=== PATIENT | male | born 1950 | race Caucasian/White ===

== ENCOUNTER 2018-09-17 15:55 | Emergency (ER) | payer OTHER, MEDICARE ==
[~2018-09-17] VITALS: Ht 177.8 cm; Wt 72.6 kg
[~2018-09-17 15:55] MED LIST: LISINOPRIL10 MG PO; MONTELUKAST SOD10 MG PO
--- OUTSIDE RECORDS SUMMARY | 2018-09-17 15:58 | XMS ---
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 Veronica has no Care Guidelines for this patient. Samira VISIT COUNT (12 MO.) 1 [facility] [place] TOTAL 1 NOTE: Visits indicate total known visits. ED/UCC VISIT TRACKING (12 MO.) 09/17/2018 15:55 [facility] [place] TYPE: Emergency COMPLAINT: - NOSE INJURY INPATIENT VISIT TRACKING (12 MO.) No inpatient visits to display in this time frame [email or web address]
== END 2018-09-17 17:28 | disposition home or self-care (01) ==
LOC: ED 15:55
DX: S01.21XA Laceration without foreign body of nose, initial encounter (principal); R04.0 Epistaxis; I10 Essential (primary) hypertension; Z90.89 Acquired absence of other organs; Z79.899 Other long term (current) drug therapy; W01.198A Fall on same level from slipping, tripping and stumbling with subsequent striking against other object, initial encounter
CPT/HCPCS: 99283

== ENCOUNTER 2020-12-30 13:28 | Inpatient (IN) | payer MEDICARE, OTHER ==
[~2020-12-30] VITALS: Ht 177.8 cm; Wt 64.0 kg
--- OUTSIDE RECORDS SUMMARY | 2020-12-30 13:30 | XMS ---
PreManage Notification: MICHELL ROMERO Security Teacher Specialist Events No recent Security Events currently on file CRITERIA MET - [facility] CARE PROVIDERS [facility] 09/18/2018-Current PHONE: [phone] Veronica has no Care Guidelines for this patient. E[place] VISIT COUNT (12 MO.) 1 EN[facility]QUE [place] TOTAL 1 NOTE: Visits indicate total known visits. ED/UCC VISIT TRACKING (12 MO.) 12/30/2020 13:29 [facility] [place] TYPE: Emergency COMPLAINT: - FLU SYMPTOMS INPATIENT VISIT TRACKING (12 MO.) No inpatient visits to display in this time frame [email or web address]
--- NOTE | 2020-12-30 16:56 | NUR ---
New admit to the floor. Patient arrived alert and oriented. Patient is on 2L oxygen per nc, respirations non labored, sp02 94% at this time. Vital signs are stable at this time. Patient reports a non productive cough. No reported pain at this time. Patient oriented to room and call light. No needs at this time.
[2020-12-30] MEDS ORDERED: ZOLPIDEM TARTRA10 MG PO (17:30)
[2020-12-30] MEDS ORDERED: FLUTICASONE PRO16 GM NAS (17:31)
--- NOTE | 2020-12-30 19:30 | NUR ---
PATIENT RESTING QUIETLY IN BED, RESPIRATIONS ARE REGULAR AND EVEN, CALL LIGHT IN REACH, PROCEDURES ANALYST IN THE ROOM. SHIFT REPORT RECEIVED FROM KALPANA GARZA.
--- NOTE | 2020-12-30 20:21 | NUR ---
PATIENT DENIES BEING SHORT OF BREATH AT THIS TIME AND DENIES PAIN.PATIENT ASSESSMENT COMPLETE AND VS STABLE ON 2L/NC. PATIENT SAYS HE HAS NOT SLEPT IN 6 DAYS AND NORMALLY TAKES AMBIEN FOR SLEEP, BUTHIS HAD NOT BEEN LETTING HIM HAVE IT AT HOME. HAS ORDERED THE AMBIEN AND THIS WILL BE GIVEN AT .
--- NOTE | 2020-12-30 21:22 | NUR ---
PATIENT GIVEN 5MG PO AMBIEN, A TESSALON WANDER, AND A MELATONIN TO HELP HIM SLEEP. PATIENT GIVEN NEW WATER. PATIENT'S O2 SATS ARE 96% ON 2L/NC. CALL LIGHT IS IN REACH. PATIENT HAS NO OTHER NEEDS AT THIS TIME.
--- NOTE | 2020-12-30 23:52 | NUR ---
PATIENT HAS MOVED MORE TO HIS RIGHT SIDE, RESPIRATIONS ARE REGULAR AND EVEN, PATIENT CONFIRMS HE HAS BEEN ABLE TO GET A LITTLE SLEEP, AND PATIENT HAS NO CURRENT CARE NEEDS AT THIS TIME. PATIENT'S O2 SATS ARE 97% ON 2L/NC WITH HR=61. ON THE UNIT AND INFORMED THAT PATIENT HAS NOT VOIDED SINCE ARRIVAL TO MED/SURG AND NO NEW ORDERS GIVEN. CALL LIGHT IS IN REACH.
--- NOTE | 2020-12-31 02:21 | NUR ---
PATIENT BACK IN BED AFTER 1PA TO THE BATHROOM AND BACK TO BED. PATIENT'S GOWN AND LINENS CHANGED DUE TO SWEATING. PATIENT GIVEN NEW WATER AND VS DONE BY FRANCISCA GRAHAM. PATIENT TOLERATED WALK TO THE BATHROOM WELL AND IS NOW POSITIONED HIGH ON HIS RIGHT SIDE ON 2L/NC WITH O2 SAT OF 98% AND HR=60. CALL LIGHT IS IN REACH.
--- NOTE | 2020-12-31 03:45 | NUR ---
PATIENT CONTINUES TO REST ON HIS RIGHT SIDE, RESPIRATIONS REGULAR AND EVEN, EYES CLOSED, AND CALL LIGHT ISIN REACH.
--- NOTE | 2020-12-31 05:50 | NUR ---
PATIENT SAYS HE SLEPT WELL. PATIENT REMAINS ON 2L/NC WITH O2 SAT AT 94%. PATIENT HAS TURNED BACK TO HIS BACK FOR THE MOMENT. PATIENT'S ICE WATER REFILLED. PATIENT HAS TO DRINK WITH AN OPEN TOP GLASS HE DOES NOT HAVE ENOUGH ENERGY TO SUCK WITH A STRAW. PATIENT'S RESPIRATIONS ARE REGULAR AND EVEN AND CALL LIGHT IS IN REACH. PATIENT DENIES THE NEED FOR COUGH MEDICATION OR TYLENOL.
--- NOTE | 2020-12-31 09:10 | NUR ---
Patient sitting up in bed eating breakfast. Patient remains on 2L oxygen per nc, respirations are even and non labored. Patient denies shorness of breath at this time. CPOX intact, sp02 94%. Patient tolerating breakfast well. Personal supplies and call light within reach.
[2020-12-31] MEDS ORDERED: RILUZOLE50 MG PO (10:00)
--- NOTE | 2020-12-31 10:30 | NUR ---
patient requested to lay down for a nap. this FLAVORING MACHINE OPERATOR put the head of the bed. closed the blinds. phone in reach. call light in reach. Pt didnt want to order lunch. has no urine output for the morning. RN notified.
--- NOTE | 2020-12-31 10:54 | NUR ---
called in hopes to speak with patient's provider regarding oxygen use for patient. expressed concern that patient's c02 will become high. This RN notified Dr. De La O that called an was concerned regarding his oxygen use. Explained to that the staff here and myself will continue to monitor patient for alerted mental status as this may indicate rising c02 levels. receptive and states she is worried about her . Patient is alert and oriented x4, respirations are even and non labored, sp02 is 94%. Patient speaking appropriately to this RN.
--- NOTE | 2020-12-31 11:00 | NUR ---
Dr. De La O notified that patient has not yet voided for me this shift. No new orders.
--- NOTE | 2020-12-31 11:04 | NUR ---
patient sittig up in the bed for breakfast. warm washcoth offered and taken. board updated. fresh ice water given. call light within reach. no further needs at this time.
--- NOTE | 2020-12-31 11:40 | NUR ---
Patient titrated to room at this time for trial. Patient's sp02 91-94%, respirations non labored. CPOX intact, sp02 continuously monitored. Patient denies shortness of breath on room air. Will continue to monitor patient.
--- NOTE | 2020-12-31 13:09 | NUR ---
Patient placed back on 2L oxygen per nc due to saturation level of 90%. Provider updated.
--- NOTE | 2020-12-31 17:20 | NUR ---
Patient sitting up in bed, hob elevated. Patient drinking his ensure for dinner. Patient denies shortness of breath and pain at this time. Patient continues on 2L oxygen per nc, respirations even and non labored. Patient reports he feels as though he is having difficulty getting phlegm up out of his chest. Encouraged patient to continue to drink plenty of fluids. No current needs. Personal supplies and call light within reach.
[2020-12-31] MEDS ORDERED: VIRTUSSIN AC L118 ML PO (17:24)
--- NOTE | 2020-12-31 19:20 | NUR ---
PATIENT SHIFT REPORT RECEIVED FROM KALPANA GARZA. PATIENT WANTED SOMEONE TO GET HI THE PHONE, SO THIS RN GOT THAT FOR HIM AND HE HAD NO OTHER CARE NEEDS AT THIS TIME. CALL LIGHT IS IN REACH.
--- NOTE | 2020-12-31 21:19 | NUR ---
PATIENT RESPOSITIONED IN BED. PATIENT REMAINS ON 2L/NC WITH SATS=96%. PATIENT TOOK ALL PM MEDS AND PRNS WITHOUT DIFFICULTY AND IV FLUSHED AND WNL. PATIENT'S ICE WATER WAS REFILLED AND VS ARE WNL. PATIENT DOES NOT NEED TO VOID AT THIS TIME, BUT WILL CALL WHENHE NEEDS TO GO. CALL LIGHT IS IN REACH AND BED IS IN THE LOWEST POSITION.
--- NOTE | 2020-12-31 22:45 | NUR ---
PATIENT HAS REPOSITIONED HIMSELF TO THE LEFT SIDE, RESPIRATIONS AR SHALLOW AND EVEN, EYES ARE CLOSED, O2 SATS=96% ON 2L/NC WITH HR=60. PATIENT HAS NO CURRENT CARE NEEDS AND CALL LIGHT IS IN REACH.
--- NOTE | 2021-01-01 00:45 | NUR ---
PATIENT UP TO THE RESTROOM 1PSBA AND BACK TO BED. PATIENT STILL A LITTLE UNSTEADY, BUT WAS INDEPENDENT FOR THE MOST PART. FRESH ATTENDS IN PLACE AND PATIENT REPOSITIONED IN BED. NEW ICE WATER GIVEN AND COUGH SYRUP. O2 SATS 94% ON 2L/NC WITH A HEART RATE=66. PATIENT HAD NO OTHER CARE NEEDS AT THIS TIME. CALL LIGHT IS IN REACH.
--- NOTE | 2021-01-01 02:15 | NUR ---
PATIENT RESTING QUIETLY NOW IN SEMI-FOWLERS POSITION, RESPIRATIONS SHALLOW AND EVEN, EYES CLOSED, O2 SATS 95% ON 2L/NC WITH A HR=64. CALL LIGHT IS IN REACH.
--- NOTE | 2021-01-01 04:35 | NUR ---
PATIENT SITTING IN BED IN HIGH FOWLERS POSITION. RESPIRATIONS ARE SHALLOW AND EVEN AND CALL LIGHT IS IN REACH. PATIENT'S O2 SATS ARE 97% ON 2L/NC WITH A HR=57 AND PATIENT REQUESTED A NEW GLASS OF ICE WATER WHICH HAS BEEN GIVEN.
--- NOTE | 2021-01-01 05:00 | NUR ---
PATIENT INFORMED TIS RN TAT E SLEPT WELL. PATIENT GREAT ORAL FLUID INTAKE. VS ARE STABLE AND O2 SAT REMAIN IN TE 90'S ON 2L/NC. PATIENT DENIES PAIN OR TE NEED FOR ANY OTER CARE AT TIS TIME. PATIENT REPOSITIONED IN BED AND LIGTS TURNED DOWN PATIENT WANTS TO SLEEP A LITTLE LONGER. CALL DE LA GARZA BESIDE PATIENT.
--- NOTE | 2021-01-01 06:42 | NUR ---
PATIENT RESTING IN HIGH FOWLERS POSITION. CPOX BATTERY CHANGED. O2 SAT 95% ON 2L/NC. CALL LIGHT IS IN REACH.
--- NOTE | 2021-01-01 08:52 | NUR ---
PATIENT IN BED RESTING. VITALS DONE. WILL COME BACK FOR I&O'S. CALL BUTTON CLOSE BY. NO MORE NEEDS.
[2021-01-01] MEDS ORDERED: DEXAMETHASONE6 MG PO (10:22)
--- NOTE | 2021-01-01 11:01 | NUR ---
Patient awake, alert and oriented x4. Patient reports he slept well last night. CPOX intact, sp02 95% on 2L per nc. Patient respirations are even and non labored, pt denies sob. Patient updated with plan of care. No needs.
--- NOTE | 2021-01-01 12:22 | NUR ---
DUE TO PRECAUTIONS I AM UNABLE TO VISIT PT. HE HAS IMPROVED, MAY DC TODAY
--- NOTE | 2021-01-01 13:30 | NUR ---
PATIENT IN BED WAITING TO BE DISCHARGED. VITALS AND I&O'S DONE. CALL LIGHT IN REACH. NO FURTHER NEEDS AT THIS TIME.
--- NOTE | 2021-01-01 13:59 | NUR ---
Discharge information provided to patient. Updated patient's . reports she will come get her after jorden arrives to her house.
== END 2021-01-01 14:50 | disposition home or self-care (01) | DRG 177 ==
LOC: ED 13:28 → MS 15:59
PROVIDERS: ADMIT Internal Medicine; ATTEND Internal Medicine
PROC: 8E0ZXY6 Isolation (ICD-10-PCS; principal; 2020-12-30)
PROC: XW033E5 Introduction of Remdesivir Anti-infective into Peripheral Vein, Percutaneous Approach, New Technology Group 5 (ICD-10-PCS; 2020-12-31)
PROC: 3E0DX3Z Introduction of Anti-inflammatory into Mouth and Pharynx, External Approach (ICD-10-PCS; 2020-12-31)
DX: U07.1 COVID-19 (principal); J96.01 Acute respiratory failure with hypoxia; J12.82 Pneumonia due to coronavirus disease 2019; G12.21 Amyotrophic lateral sclerosis; F51.04 Psychophysiologic insomnia; I10 Essential (primary) hypertension; Z79.899 Other long term (current) drug therapy; Z98.890 Other specified postprocedural states
CPT/HCPCS: 71045; 80053; 83735; 84484; 85025; 94760; 94761; 94762; 96374; 99284-25; A9270; C9803; J1100; J1650; J7050; U0003

== ENCOUNTER 2024-03-04 04:31 | Emergency (ER) | payer MEDICARE, OTHER ==
[~2024-03-04] VITALS: Ht 177.8 cm; Wt 57.7 kg
[~2024-03-04 04:31] MED LIST changes: +DEXAMETHASONE6 MG PO; +FLUTICASONE PRO16 GM NAS; +RILUZOLE50 MG PO; +VIRTUSSIN AC L118 ML PO; +ZOLPIDEM TARTRA10 MG PO
[2024-03-04] MEDS ORDERED: LISINOPRIL10 MG PO (04:46)
[2024-03-04] MEDS ORDERED: PRILOSEC OTC20 MG PO (04:48)
[2024-03-04] MEDS ORDERED: DEXTROSE 5% 100 ML IV ONE (04:48)
[2024-03-04 04:59] LABS: HEMOGLOBIN 14.4 g/dL (12.0-18.0); PLATELET COUNT 239 K/uL (140-440)
[2024-03-04] MEDS ORDERED: PIPERACILLIN/TAZOBACTAM 3.375 GM in DEXTROSE 5% 100 ML IV ONE (05:00)
[2024-03-04] MEDS ORDERED: ALBUTEROL/IPRATROPIUM 3 ML NEB INH ONE (05:00)
[2024-03-04 05:01] LABS: BASOPHILS 0.3 % (0-2); EOSINOPHILS 0.1 % (0-6); HEMATOCRIT 43.1 % (35.0-50.0); LYMPHOCYTES 2.6 % (24-44); MCH 35.8 (27-36); MCHC 33.4 g/dl (30-36); MCV 107.2 fl (81-99); MONOCYTES 6.3 % (0-12); NEUTROPHILS 90.7 % (39-80); RBC 4.02 M/ul (4.3-5.7); RDW 15.1 (10.5-15.0)
[2024-03-04 05:09] LABS: INR 1.13 (0.80-1.30); PROTIME 14.1 Sec (11.2-14.2)
[2024-03-04 05:17] LABS: LACTIC ACID, BLOOD 1.1 mmol/L (0.4-2.0)
[2024-03-04 05:24] LABS: ALBUMIN 4.4 g/dL (3.4-5.0); ALBUMIN/GLOBULIN RATIO 1.29 (1.1-2.4); ANION GAP 15.4 (7-21); BILIRUBIN, TOTAL 1.2 ng/dL (0.2-1.0); BUN/CREATININE RATIO 24.74 (6.0-28.6); CALCIUM 9.3 mg/dL (8.5-10.1); CREATININE, SERUM 0.97 mg/dL (0.70-1.30); POTASSIUM 4.4 mmol/L (3.5-5.1); PROTEIN, TOTAL 7.8 g/dL (6.4-8.2)
[2024-03-04 05:26] LABS: BASE EXCESS, BLOOD GAS 0.5 mmol/L (-2-2); HCO3, BLOOD GAS 26.4 mmol/L (22-26); O2 SATURATION, BLOOD GAS 92.6 % (95.0-100.0); OXYGEN RECEIVED, BLOOD GAS 40%; PH, BLOOD GAS 7.35 (7.35-7.45); PO2, BLOOD GAS 71 mmHg (80-100); TOTAL CO2, BLOOD GAS 27.8
[2024-03-04 05:34] LABS: INFLUENZA B NAA NEGATIVE (NEGATIVE); RESPIRATORY SYNCYTIAL VIR NAA NEGATIVE (NEGATIVE)
[2024-03-04 07:08] LABS: BASE EXCESS, BLOOD GAS 1.6 mmol/L (-2-2); HCO3, BLOOD GAS 26.8 mmol/L (22-26); O2 SATURATION, BLOOD GAS 98.2 % (95.0-100.0); OXYGEN RECEIVED, BLOOD GAS 60%; PCO2, BLOOD GAS 42.9 mmHg (35-45); PO2, BLOOD GAS 114 mmHg (80-100); TOTAL CO2, BLOOD GAS 28.1
[2024-03-04] MEDS ORDERED: CEFDINIR 250 MG/5 ML HOME.PACK PO ONE (07:45)
[2024-03-04 09:39] VITALS: BP 116/74
== END 2024-03-04 09:39 | disposition home or self-care (01) ==
LOC: ED 04:31
PROVIDERS: Family Medicine
DX: J69.0 Pneumonitis due to inhalation of food and vomit (principal); G12.21 Amyotrophic lateral sclerosis; I10 Essential (primary) hypertension; Z66 Do not resuscitate; Z79.899 Other long term (current) drug therapy
CPT/HCPCS: 36415; 36600; 71045; 71250; 80053; 82803; 83605; 83880; 85025; 85060; 85610; 87502; 94640; 94660; 94761; 99285-25; J2543; U0002

== ENCOUNTER 2024-12-10 08:08 | Emergency (ER) | payer MEDICARE, OTHER ==
[~2024-12-10] VITALS: Ht 177.8 cm; Wt 60.1 kg
[~2024-12-10 08:08] MED LIST changes: +PRILOSEC OTC20 MG PO
[2024-12-10] MEDS ORDERED: KETOROLAC TROMETHAMINE 15 MG/ML VIAL IV ONE (08:30)
[2024-12-10] MEDS ORDERED: fentaNYL citrate 100 MCG/2 ML VIAL IV ONE ×2 (08:30→10:30)
[2024-12-10 08:54] LABS: BASOPHILS 0.5 % (0.2-1.2); EOSINOPHILS 0.2 % (0.8-7.0); LYMPHOCYTES 5.2 % (21.8-53.1); MCH 34.7 PG (25.7-32.2); MCHC 33.2 g/dL (32.3-36.5); MCV 104.3 fL (79.0-92.2); MONOCYTES 3.7 % (5.3-12.2); NEUTROPHILS 86.9 % (34.0-67.9); RBC 3.49 M/uL (4.63-6.08)
[2024-12-10 09:10] LABS: ALCOHOL, MEDICAL <3 ng/dL (<3); ALT (SGPT) 49 U/L (14-59); AST (SGOT) 49 U/L (15-37); GLOMERULAR FILTRATION RATE,EST 103 mL/min (>60); PROTEIN, TOTAL 6.5 g/dL (6.4-8.2); UREA NITROGEN 9 mg/dL (7-18)
[2024-12-10 09:59] LABS: INR 1.2 (0.80-1.30); PROTIME 14.8 Sec (11.2-14.2)
[2024-12-10] MEDS ORDERED: SCOPOLAMINE 1 MG/3 DAYS PATCH 1 EACH TDSY TD ONE (10:00)
[2024-12-10 11:12] VITALS: BP 141/75
== END 2024-12-10 11:12 | disposition short-term general hospital (02) ==
LOC: ED 08:08
PROVIDERS: Emergency Medicine
DX: S12.120A Other displaced dens fracture, initial encounter for closed fracture (principal); S12.190A Other displaced fracture of second cervical vertebra, initial encounter for closed fracture; S22.081A Stable burst fracture of T11-T12 vertebra, initial encounter for closed fracture; S22.038A Other fracture of third thoracic vertebra, initial encounter for closed fracture; S22.048A Other fracture of fourth thoracic vertebra, initial encounter for closed fracture; S22.018A Other fracture of first thoracic vertebra, initial encounter for closed fracture; S22.20XA Unspecified fracture of sternum, initial encounter for closed fracture; S42.031A Displaced fracture of lateral end of right clavicle, initial encounter for closed fracture; S06.5X0A Traumatic subdural hemorrhage without loss of consciousness, initial encounter; I10 Essential (primary) hypertension; Z79.899 Other long term (current) drug therapy; W18.30XA Fall on same level, unspecified, initial encounter
CPT/HCPCS: 36415; 70450; 71260; 72125; 80053; 80307; 85025; 85610; 94799; 96374; 96375; 96376; 99285-25; G0480; J1885; J3010; Q9967